=== PATIENT | female | born 1965 | race Caucasian/White ===

== ENCOUNTER → 2018-09-13 07:03 | Outpatient (CLI) | payer OTHER, SELFPAY ==
[2018-09-13 07:56] LABS: Hemoglobin A1C% w Est Avg Glu 7.9 % (4.0-6.0)
[2018-09-13 08:50] LABS: Alanine Aminotransferase 44 IU/L (9-52); Albumin 4.2 g/dL (3.5-5.0); Albumin Globulin Ratio 1.6 (1.0-2.8); Alkaline Phosphatase 86 U/L (38-126); Aspartate Aminotransferase 22 IU/L (14-36); BUN Creatinine Ratio 17.1 (6-22); Bilirubin Total 0.4 mg/dL (0.2-1.3); Blood Urea Nitrogen 12 mg/dL (7-17); C-Reactive Protein Quant 1.1 mg/dL (<1.0); Carbon Dioxide 27 mmol/L (22-32); Chloride 100 mmol/L (98-107); Cholesterol 183 mg/dL (140-199); Estimated Glomerular Filt Rate > 60.0 mL/min (>60); Globulin 2.6 g/dL (1.7-4.1); Glucose 164 mg/dL (70-100); HDL Cholesterol 42 mg/dL (40-60); HEMOLYSIS < 15 (0-50); LDL Cholesterol Calculated 110 mg/dL (<100); Potassium 4.2 mmol/L (3.4-5.1); Sodium 137 mmol/L (137-145); Total Protein 6.8 g/dL (6.3-8.2); Triglycerides 155 mg/dL (35-150)
[2018-09-13 09:03] LABS: Free T3, Triiodothyronine Free 2.42 pg/mL (2.77-5.27); Free T4, Direct Thyroxine 1.01 ng/dL (0.78-2.19)
[2018-09-13 09:17] LABS: Thyroid Stimulating Hormone 7.88 uIU/mL (0.47-4.68)
[2018-09-13 09:21] LABS: Ferritin 20.2 ng/mL (11.1-264)
[2018-09-15 20:45] LABS: Triiodothyronine T3 Total 95 ng/dL (76-181)
[2018-09-16 16:16] LABS: Triiodothyronine T3 Reverse 21 ng/dL (8-25)
== END ==
PROVIDERS: Family Provider Otolaryngology; PCP Internal Medicine; Visit Provider Naturopath
DX: I10 Essential (primary) hypertension (principal); E11.9 Type 2 diabetes mellitus without complications; E03.9 Hypothyroidism, unspecified; E78.5 Hyperlipidemia, unspecified
CPT/HCPCS: 36415; 80053; 80061; 82728; 83036; 84439; 84443; 84480; 84481; 84482; 86140

== ENCOUNTER 2020-11-19 16:52 | Emergency (ER) | payer OTHER, SELFPAY ==
[2020-11-19 16:58] VITALS: BP 138/59; PULSE 91; RESP 22; TEMP 36.7; O2SAT 97
--- NOTE | 2020-11-19 17:33 | DI.RAD.S_ITS ---
PROCEDURE: XR FOOT RT MIN 3V INDICATIONS: dorsal foot pain after direct blow TECHNIQUE: 3 views of the foot were acquired. COMPARISON: None. FINDINGS: Bones: No fractures or dislocations. No suspicious bony lesions. Calcaneal spur is noted. Soft tissues: No tibiotalar joint effusion. Achilles tendon appears normal. IMPRESSION: No visualized acute fracture or dislocation. However, if clinical concern and/or pain persist, short interval imaging followup in 7-10 days is recommended, as occult injury cannot be definitively excluded. Dictated by: Minoo Hitchcock M.D. on 11/19/2020 at 16:47 Approved by: Minoo Hitchcock M.D. on 11/19/2020 at 16:52
--- NOTE | 2020-11-19 19:33 | ED_ITS ---
HPI - Extremity Injury (Lower) General Chief Complaint: Extremity Injury, Lower Stated Complaint: rt foot injury Time Seen by Provider: 11/19/20 17:56 Source: patient Mode of arrival: Ambulatory Limitations: no limitations History of Present Illness HPI Narrative: 54-year-old female nonsmoker with noncontributory medical history presents with a chief complaint of work related right foot injury. 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 She now has pain and some swelling. Her pain is worse with ambulation and improves with rest. She denies any numbness, tingling or weakness. She denies any history of similar injury. She is otherwise well and free of complaint. MD complaint: foot injury Onset (ago): hour(s) Type of Injury: blunt Place: work Severity: mild Relieving factors: rest Exacerbating factors: weight bearing, movement and palpation Context: direct blow Associated symptoms: swelling and ambulatory Other symptoms: none Treatments prior to arrival: cold therapy Related Data Home Medications Medication Instructions Recorded Confirmed CA PANTOTHENATE/FOLIC ACID/VIT 1 tab PO QDAY #0 07/14/11 04/21/19 (MULTIVITAMIN) glipizide 2.5 mg tablet, extended 5 mg PO QDAY tab 04/21/19 release 24 hr levothyroxine 175 mcg capsule 175 mcg PO DAILY 04/21/19 04/21/19 simvastatin 10 mg tablet 10 mg PO DAILY 04/21/19 04/21/19 Allergies Allergy/AdvReac Type Severity Reaction Status Date / Time amoxicillin [AMOXICILLIN] Allergy Unknown Verified 04/21/19 16:25 phenazopyridine Allergy Unknown Verified 04/21/19 16:25 [From PYRIDIUM] Sulfa (Sulfonamide Allergy Unknown Verified 04/21/19 16:25 Antibiotics) [SULFA (SULFONAMIDE ANTIBIOTICS)] Review of Systems Constitutional Constitutional: Denies chills, Denies fatigue, Denies fever(s), Denies frequent falls, Denies lethargy and Denies weakness Eyes Eyes: Denies change in vision, Denies eye discharge, Denies irritation and Denies loss of vision ENT Ears, Nose, Mouth, and Throat: Denies change in voice, Denies dizziness, Denies neck pain, Denies sore throat and Denies throat swelling Cardiovascular Cardiovascular: Denies chest pain, Denies irregular heart rhythm, Denies lightheadedness, Denies palpitations, Denies dyspnea, Denies dyspnea on exertion and Denies orthopnea Respiratory Respiratory: Denies cough, Denies dyspnea, Denies dyspnea on exertion and Denies wheezing Gastrointestinal Gastrointestinal: Denies abdominal pain, Denies change in bowel habits, Denies diarrhea, Denies nausea and Denies vomiting Musculoskeletal Musculoskeletal: Reports joint swelling, Denies neck pain and Denies numbness Integumentary/Breasts Skin/Breast: Denies pruritus, Denies erythema, Denies rash and Denies wounds Neurologic Neurologic: Denies behavioral changes, Denies confusion, Denies dizziness, Denies frequent falls, Denies loss of vision, Denies numbness and Denies weakness Psychiatric Psychiatric: Denies anxiety, Denies behavioral changes, Denies confusion, Denies depression, Denies homicidal ideation and Denies suicidal ideation Endocrine Endocrine: Denies fatigue, Denies flushing and Denies palpitations Hematologic/Lymphatic Hematologic/Lymphatic: Denies easy bruising Allergic/Immunologic Allergic/Immunologic: Denies urticaria, Denies throat swelling and Denies wheezing Patient History Surgical History Status post breast biopsy Status post cholecystectomy Status post tubal ligation Family History Mother Breast CA Age related osteoporosis Exam Narrative Exam Narrative: GEN: AOx3 and in mild distress EYES: Pupils are equal, round, and reactive to light and accommodation. Extraoccular muscles are intact bilaterally. There is no subconjunctival hemorrhage or exudate. CHEST: Lungs are clear to auscultation bilaterally and free of wheezes, rales, or rhonchi. Heart rate is regular rhythm, there are no murmurs, clicks, rubs, or gallops. There is no chest wall tenderness. ABD: Abdomen is soft and nontender. There is no guarding or rebound. Bowel sounds are normal in all 4 quadrants. There is no mass or organomegaly. EXT: Minor swelling on the dorsum of the right foot with no obvious abnormality, this is close an isolated, cap refill and sensation intact, no specific bony point tenderness. SKIN: Warm, pink, and dry. No erythema or rash Initial Vital Signs Initial Vital Signs: Vital Signs Temperature 98.0 F 11/19/20 16:58 Pulse Rate 91 H 11/19/20 16:58 Respiratory Rate 22 11/19/20 16:58 Blood Pressure 138/59 L 11/19/20 16:58 Pulse Oximetry 97 11/19/20 16:58 Procedures Orthopedic Splinting/Casting Injury #1: Side: right Lower Extremity Injury Location: foot Lower Extremity Immobilizer: post-op shoe Course Orders Ordered: ED Orders 11/19/20 17:33 XR foot RT min 3V Stat Vital Signs Vital signs: Vital Signs - 8 hr 11/19/20 19:56 Pulse Rate 87 Respiratory Rate 20 Blood Pressure 183/73 H Pulse Oximetry 97 MDM - Extremity Injury (Lower) Imaging Data Extremity x-ray #1: Radiologist's Impression: Chart Viewer Diagnostics DATE TYPE STATUS REF RANGE/AUTHOR Hx 11/19/20 17:33 Minoo HitchcockWilberto krause Brandt 54, [id number] [facility]P [facility] 126.099kg Extremity Injury, Lower Search Chart No Data to Display NonFormulary Not Included in Conflicts ONSET 07/27/16 11/19/20 19:56 SpencerWilberto krause Brandt 54 F [address] [id number] ReportSigned Patient: Wilberto Palmer WMR#: [id number]: 1965Acct:[id number]/Sex: 54 / FDate of Service: 11/19/20Loc: EDAccession Number: [id number] Procedure: XR foot RT min 3V Ordering Provider: Alejandro Ayala D.O. PROCEDURE: XR FOOT RT MIN 3V INDICATIONS: dorsal foot pain after direct blow TECHNIQUE: 3 views of the foot were acquired. COMPARISON: None. FINDINGS: Bones: No fractures or dislocations. No suspicious bony lesions. Calcaneal spur is noted. Soft tissues: No tibiotalar joint effusion. Achilles tendon appears normal. IMPRESSION: No visualized acute fracture or dislocation. However, if clinical concern and/or pain persist, short interval imaging followup in 7-10 days is recommended, as occult injury cannot be definitively excluded. Dictated by: Minoo Hitchcock M.D. on 11/19/2020 at 16:47 Approved by: Minoo Hitchcock M.D. on 11/19/2020 at 16:52 Discharge Plan Departure Patient Disposition: Home Clinical Impression: Contusion of foot Qualifiers: Encounter type: initial encounter Laterality: right Qualified Code(s): S90.31XA - Contusion of right foot, initial encounter Activity Restrictions/Additional Instructions: *You have been diagnosed with [foot pain, your exam and x-ray are very reassuring. No fractures noted] *What to do: *Take medications as directed *Follow up with your primary care provider in 2-3 days, call for an appointment. Let them know you were seen in the Emergency Department and that we ask that you be seen in follow up *Return to ER if you should have any new, worsening or concerning symptoms Prescriptions: No Action glipizide [Glucotrol XL] 2.5 mg tablet extended release 24hr 5 mg PO QDAY RF: 0 levothyroxine 175 mcg capsule 175 mcg PO DAILY RF: 0 simvastatin 10 mg tablet 10 mg PO DAILY RF: 0 CA PANTOTHENATE/FOLIC ACID/VIT (MULTIVITAMIN) 1 tab PO QDAY Qty: 0 RF: 0 Referrals: Ayse Braden DO [Primary Care Provider] -
[2020-11-19 19:56] VITALS: BP 183/73; PULSE 87; RESP 20; O2SAT 97
== END 2020-11-19 19:57 | disposition home or self-care (01) ==
PROVIDERS: Emergency Provider Emergency Medicine; Family Provider Otolaryngology; PCP Family Medicine
DX: S90.31XA Contusion of right foot, initial encounter (principal); W51.XXXA Accidental striking against or bumped into by another person, initial encounter; Y99.0 Civilian activity done for income or pay
CPT/HCPCS: 73630; 99283